=== PATIENT | female | born 1980 | race Caucasian/White ===

== ENCOUNTER 2023-04-13 09:01 | Outpatient (OUT) | payer OTHER, SELFPAY ==
--- NOTE | 2023-04-13 09:07 | VEIN_ITS ---
Patient: MATT CHENG Exam Date: 04/13/2023 : 1980 Gender:F Ordering : MRS. DIANA SALGUERO . Admission #: [id number] Family : Order #: [id number] CLICK HERE TO VIEW EXAM RADIOLOGY REPORT PROCEDURE: VC EXT VENOUS REFLUX HAILY LMTD COMPARISON: None. INDICATIONS: Pain due to varicose veins of bilateral leg I83.813 TECHNIQUE: Duplex imaging of the lower extremity to assess the deep and superficial venous system for the presence of deep or superficial venous incompetence and to document the location and severity of disease. The study includes evaluation of the great saphenous vein (GSV), anterior accessory saphenous vein (AASV) and small saphenous vein (SSV). Patient scanned in reverse Trendelenburg and standing. FINDINGS: RIGHT LOWER EXTREMITY: Saphenofemoral Junction Reflux: Yes 8.4mm 1.3 sec GSV: Diam (mm) Reflux/ Time (sec) Proximal Thigh 6.3 Yes 1.8 Mid Thigh 4.1 Yes Distal Thigh 3.4 No Prox Calf 2.8 Yes 0.8 Mid Calf 2.4 No Saphenopopliteal Junction Reflux: 6.0mm Yes 1.2 SSV: Proximal Calf 5.2 Yes 1.0 Mid Calf 4.0 Yes 1.9 AASV: Proximal Thigh 4.2 Mid Thigh 2.0 Distal Thigh Thrombi: No acute or chronic thrombus Compressibility: Normal Flow: Normal Preforator: Dist/med calf 1.6mm with 0s reflux. Tech Note: Incompetent SFJ, GSV, SPJ, and SSV. Patent varicose vein mid/med thigh 3.4mm with 1.6s reflux. Patent varicose vein dist/med thigh 3.4mm with 0s reflux. Patent varicose vein prox/med calf 1.8mm with 0.9s reflux. 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 Tech Note: Incompetent SFJ, GSV, and AASV. Patent varicose vein prox/med calf 4.9mm with 4.1s reflux. Patent varicose vein prox/med thigh 3.9mm with 1.9s reflux. Patent varicose vein mid/lat thigh 6.2mm with 1.9s reflux. Patent varicose vein ant/dist thigh 5.3mm with 1.7s reflux. CONCLUSION: 1. Abnormally dilated and incompetent left great saphenous and anterior accessory saphenous veins. Numerous incompetent and dilated branch saphenous varicosities. Consultation for endovenous ablation is recommended. 2. Segments of abnormal reflux within right great saphenous and small saphenous veins which fall just below criteria for abnormal dilation. Follow-up is recommended. Dictated by: Lyle Paz M.D. on 04/13/2023 at 10:13 Approved by: Lyle Paz M.D. on 04/13/2023 at 10:39
--- NOTE | 2023-04-13 09:07 | VEIN_ITS ---
Patient: MATT CHENG Exam Date: 04/13/2023 : 1980 Gender:F Ordering : MRS. DIANA SALGUERO . Admission #: [id number] Family : Order #: [id number] CLICK HERE TO VIEW EXAM RADIOLOGY REPORT PROCEDURE: [facility] COMPREHENSIVE VEIN CENTER - OFFICE VISIT INITIAL COMPARISON: None. PROGRESS NOTES: [age] year old female who presents with a 16 year history of bulging dilated veins, discolored veins, leg pain, swelling, muscle cramping, edema. The patient's symptoms are symmetric bilaterally. There has been a progression of symptoms over time. This increases with prolonged leg dependency. The patient describes an improvement with rest and elevation. The patient denies any signs and symptoms to suggest arterial ischemia. The patient describes a family history of varicose veins on maternal and paternal side. The patient has drinking and smoking history of : Occasional alcohol consumption; no tobacco use. Patient has a past medical history significant for 6th hypertension. The patient denies a history of deep venous thrombus or pulmonary embolus. See separate history and physical for medication list. No prior treatment for varicose or spider veins. Past treatment has included use of compression stockings. After review of nurse notes, history and physical exam I discussed at length the pathophysiology of venous hypertension and possible treatments, therapies and strategies available. We discussed at length the importance of elevating the lower extremities above the level of the heart, increased physical activity and compression stocking use. Ultrasound venous reflux study performed today was discussed at length with the patient. The report demonstrates abnormally dilated and incompetent left great saphenous and anterior accessory saphenous veins. The right leg demonstrates multiple areas of reflux, but vein diameter falls just below criteria for treatment. Multiple dilated, incompetent branch saphenous varicosities bilaterally.. PHYSICAL EXAM: The right leg demonstrates several varicosities, multiple prominent reticular veins and spider veins, no ulceration, mild edema, no skin discoloration. The left leg demonstrates several large varicosities, multiple prominent reticular veins and spider veins, no ulceration, mild edema, no skin discoloration. Both thighs, legs and feet were symmetrically warm to the touch. Good posterior tibial and dorsalis pedis pulses were present bilaterally. IMPRESSION: 1. Bilateral lower extremity venous insufficiency; left greater than right. 2. Bilateral lower extremity varicose veins 3. Mild lower extremity subcutaneous edema 4. No flow significant arterial disease 5. CEAP: C3, EC, , MA PLAN: 1. Continued use of compression stockings 2. Elevated legs and increased physical activity symptomatic relief 3. Endovenous laser ablation of left great saphenous and anterior accessory saphenous veins. 4. Microfoam chemical ablation of left leg incompetent branch saphenous varicosities. 5. Sclerotherapy of bilateral lower extremities for prominent reticular veins and spider veins. 6. Follow-up of right lower extremity saphenous veins, since there are multiple areas of prominent reflux, but diameter falls just below treatment criteria. Nurse notes, history and physical were reviewed and confirmed, see attached forms. The nurse was present throughout the physical exam and consultation Dictated by: Lyle Paz M.D. on 04/13/2023 at 10:40 Approved by: Lyle Paz M.D. on 04/13/2023 at 10:51
== END 2023-04-13 09:02 ==
LOC: VC 09:03
PROVIDERS: PCP Nurse Practitioner; Visit Provider Nurse Practitioner
DX: I83.813 Varicose veins of bilateral lower extremities with pain (principal)
CPT/HCPCS: 93970; G0463

== ENCOUNTER 2023-05-06 12:35 | Outpatient (OUT) | payer OTHER, SELFPAY ==
--- NOTE | 2023-05-06 12:37 | VEIN_ITS ---
[address] [address] Patient Name: MATT CHENG MRN: [id number] date: 1980 Sex: F Assigned Patient Location: Current Patient Location: Accession/Order Number: [id number] Exam Date: 05/06/2023 12:40 Report Date: 05/06/2023 14:08 At the request of: FARHAT KHAN Procedure: VC Endovenous Ablation 1VeinLT EXAMINATION: VC Endovenous Ablation 1VeinLT HISTORY: Pain due to varicose veins of bilateral legs I83.813 COMPARISON: No relevant comparison available. TECHNIQUE: The risks and benefits of the procedure had been previously discussed, and were rediscussed at length. Informed written consent was obtained. Puja Clements and Griffin Myers assisted. Time out procedure was performed. The left lower extremity was prepared and draped in the usual sterile fashion to allow knee flexion in the sterile field. Duplex ultrasound probe was draped in a sterile cover, sterile transmission gel was used. Venous mapping was performed with the areas of dilation and large tributaries marked. The total length was 34 cm from the entry upper calf to 3 cm below the saphenofemoral junction. The diameter of the greater saphenous vein ranged from 4-9 mm. A 30 gauge needle and 1% buffered lidocaine was used to anesthetize the entry site. A 4 mm incision was made with a scalpel and the saphenous vein was entered percutaneously under direct ultrasound guidance with a micropuncture set, a single stick was successful in gaining access. A micro-guide wire was inserted and the needle removed. A micro-set including a dilator was inserted over the microwire and the needle and dilator were removed. A 0.018 guide wire was inserted through the micro-set and threaded through the saphenous vein to the saphenofemoral junction. The dilator was removed and an introducer sheath was inserted over the wire until the end of the sheath entered the saphenofemoral junction. The dilator and wire were removed and the 600 micron fiber was introduced and placed and positioned so that it extended beyond the sheath and was 3 cm peripheral to the saphenofemoral femoral junction. Final position of the fiber was determined by ultrasound guidance and duplex imaging. Tumescent anesthetic was delivered by ultrasound guidance. 200 cc of fluid was delivered along the entire course of the saphenous vein. The solution consisted of 1000 cc of normal saline with 40 mL of 1% lidocaine and 20 mL of sodium bicarbonate. A final positioning check was made. The energy source was turned on by means of the foot pedal and the fiber and sheath were withdrawn. The total number of Joules delivered was 1617. The laser was active for 202seconds under continuous pulse, average laser use of 8 J. Laser start time 13:47 05/06/23 . Laser stop time 13:51 05/06/23 . A duplex ultrasound revealed compressibility and flow at the saphenofemoral junction immediately after the procedure. Hemostasis at the access site was achieved. The skin incision of the saphenous vein was closed with a 4 x 4. A compression stocking was applied. Postop instructions were given. A follow up appointment was recommended and scheduled. The patient tolerated the procedure well and was discharged in good condition . IMPRESSION: Technically successful endovenous laser ablation of the left great saphenous vein Electronically authenticated by: FARHAT KHAN Date: 05/06/2023 14:08
[2023-05-12] MEDS: 0.9 % SODIUM CHLORIDE 500 ML, LIDOCAINE HCL 20 ML, SODIUM BICARBONATE 10 MEQ INJ (11:37)
[2023-05-12] MEDS: LIDOCAINE HCL 10 ML, SODIUM BICARBONATE 1 MEQ INJ (11:37)
== END 2023-05-06 12:36 | disposition home or self-care (01) ==
LOC: VC 12:36
PROVIDERS: PCP Radiology Diagnostic Radiology; Visit Provider Radiology Diagnostic Radiology
DX: I83.813 Varicose veins of bilateral lower extremities with pain (principal)
CPT/HCPCS: 36478

== ENCOUNTER 2023-05-13 13:23 | Outpatient (OUT) | payer OTHER, SELFPAY ==
--- NOTE | 2023-05-13 13:25 | VEIN_ITS ---
Patient: MATT CHENG Exam Date: 05/13/2023 : 1980 Gender:F Ordering : DR FARHAT KHAN M.D. Admission #: [id number] Family : Order #: [id number] CLICK HERE TO VIEW EXAM RADIOLOGY REPORT PROCEDURE: VC EXT VENOUS LT LIMITED COMPARISON: None. INDICATIONS: I80.02 Phlebitis of superficial veins of lt lower extremity TECHNIQUE: Lower extremity liao scale and Duplex Doppler evaluation of the deep venous system from the inguinal ligament through the calf veins. FINDINGS: REGION: Left lower extremity. THROMBI: Negative for DVT. Heat induced thrombus visualized 1.7 cm from the SFJ. The heat induced thrombus extends from groin to proximal calf. COMPRESSIBILITY: Non-compressible segments. FLOW: Areas of no flow. OTHER: CONCLUSION: 1. Successful post ablation occlusion of left great saphenous vein. Dictated by: Lyle Paz M.D. on 05/13/2023 at 14:05 Approved by: Lyle Paz M.D. on 05/13/2023 at 14:06
--- NOTE | 2023-05-13 13:25 | VEIN_ITS ---
Patient: MATT CHENG Exam Date: 05/13/2023 : 1980 Gender:F Ordering : DR FARHAT KHAN M.D. Admission #: [id number] Family : Order #: [id number] CLICK HERE TO VIEW EXAM RADIOLOGY REPORT PROCEDURE: [facility] EST LMTD VEIN CENTER - OFFICE VISIT FOLLOW UP COMPARISON: None. PROGRESS NOTES: The patient reports mild bruising along with slight improvement in left leg symptoms. There has been interval reduction in varicosities. The patient has followed our recommendations to walk 20-30 minutes once or twice per day since the procedure. Physical exam demonstrates decrease in varicosities of the left leg. Persistent mild bruising along with persistent varicosities are identified along the left. Review of the ultrasound performed the same day demonstrates occlusive thrombus extending throughout the treated vein, see separate report, consistent with a successful ablation. No thrombus extending into or beyond the saphenofemoral junction. The patient expressed a desire to proceed with treatment of left anterior accessory saphenous vein and remaining incompetent branch saphenous varicosities. The patient was informed that treatment was a process and would require several procedures/sessions. IMPRESSION: 1. Successful ablation of the left great saphenous vein 2. Persistent incompetent varicose veins and lower extremity symptoms PLAN: Endovenous laser ablation of left anterior accessory saphenous vein. Nurse notes, history and physical were reviewed and confirmed, see attached forms. The nurse was present throughout the physical exam and consultation Dictated by: Lyle Paz M.D. on 05/13/2023 at 14:06 Approved by: Lyle Paz M.D. on 05/13/2023 at 14:08
== END 2023-05-13 13:24 | disposition home or self-care (01) ==
LOC: VC 13:23
PROVIDERS: PCP Radiology Diagnostic Radiology; Visit Provider Radiology Diagnostic Radiology
DX: I80.02 Phlebitis and thrombophlebitis of superficial vessels of left lower extremity (principal); I83.813 Varicose veins of bilateral lower extremities with pain
CPT/HCPCS: 93971; G0463

== ENCOUNTER 2023-05-26 09:03 | Outpatient (OUT) | payer OTHER, SELFPAY ==
--- NOTE | 2023-05-26 | VEIN_ITS ---
[address] [address] Patient Name: MATT CHENG MRN: [id number] date: 1980 Sex: F Assigned Patient Location: Current Patient Location: Accession/Order Number: [id number] Exam Date: 05/26/2023 09:15 Report Date: 05/26/2023 10:20 At the request of: FARHAT KHAN Procedure: VC Endovenous Ablation 1VeinLT EXAMINATION: VC Endovenous Ablation 1VeinLT HISTORY: Pain due to varicose veins of bilateral legs I83.813 COMPARISON: No relevant comparison available. TECHNIQUE: The risks and benefits of the procedure had been previously discussed, and were rediscussed at length. Informed written consent was obtained. Puja Clements and Griffin Myers assisted. Time out procedure was performed. The left lower extremity was prepared and draped in the usual sterile fashion to allow knee flexion in the sterile field. Duplex ultrasound probe was draped in a sterile cover, sterile transmission gel was used. Venous mapping was performed with the areas of dilation and large tributaries marked. The total length was 7 cm from the entry upper thigh to 3 cm below the saphenofemoral junction. The diameter of the greater saphenous vein ranged from 5-7 mm. A 30 gauge needle and 1% buffered lidocaine was used to anesthetize the entry site. A 4 mm incision was made with a scalpel and the saphenous vein was entered percutaneously under direct ultrasound guidance with a micropuncture set, a single stick was successful in gaining access. A micro-guide wire was inserted and the needle removed. A micro-set including a dilator was inserted over the microwire and the needle and dilator were removed. A 0.018 guide wire was inserted through the micro-set and threaded through the saphenous vein to the saphenofemoral junction. The dilator was removed and an introducer sheath was inserted over the wire until the end of the sheath entered the saphenofemoral junction. The dilator and wire were removed and the 600 micron fiber was introduced and placed and positioned so that it extended beyond the sheath and was 3 cm peripheral to the saphenofemoral femoral junction. Final position of the fiber was determined by ultrasound guidance and duplex imaging. Tumescent anesthetic was delivered by ultrasound guidance. 75 cc of fluid was delivered along the entire course of the saphenous vein. The solution consisted of 1000 cc of normal saline with 40 mL of 1% lidocaine and 20 mL of sodium bicarbonate. A final positioning check was made. The energy source was turned on by means of the foot pedal and the fiber and sheath were withdrawn. The total number of Joules delivered was 383. The laser was active for 48 seconds under continuous pulse, average laser use of 8 J. Laser start time 9:58 AM 05/26/2023 . Laser stop time 10AM 05/26/2023. A duplex ultrasound revealed compressibility and flow at the saphenofemoral junction immediately after the procedure. Hemostasis at the access site was achieved. The skin incision of the saphenous vein was closed with a 4 x 4. A compression stocking was applied. Postop instructions were given. A follow up appointment was recommended and scheduled. The patient tolerated the procedure well and was discharged in good condition . VEIN/VC Endovenous Ablation 1VeinLT IMPRESSION: Technically successful endovenous laser ablation left anterior accessory saphenous vein Electronically authenticated by: FARHAT KHAN Date: 05/26/2023 10:20
[2023-05-26] MEDS: 0.9 % SODIUM CHLORIDE 500 ML, LIDOCAINE HCL 20 ML, SODIUM BICARBONATE 10 MEQ INJ (09:51)
[2023-05-26] MEDS: LIDOCAINE HCL 10 ML, SODIUM BICARBONATE 1 MEQ INJ (09:52)
== END 2023-05-26 09:04 | disposition home or self-care (01) ==
LOC: VC 09:03
PROVIDERS: PCP Radiology Diagnostic Radiology; Visit Provider Radiology Diagnostic Radiology
DX: I83.813 Varicose veins of bilateral lower extremities with pain (principal)
CPT/HCPCS: 36478

== ENCOUNTER 2023-06-01 11:25 | Outpatient (OUT) | payer OTHER, SELFPAY ==
--- NOTE | 2023-06-01 11:27 | VEIN_ITS ---
Patient: MATT CHENG Exam Date: 06/01/2023 : 1980 Gender:F Ordering : DR FARHAT KHAN M.D. Admission #: [id number] Family : Order #: [id number] CLICK HERE TO VIEW EXAM RADIOLOGY REPORT PROCEDURE: VC EXT VENOUS LT LIMITED COMPARISON: VC EXT VENOUS LT LIMITED, 05/13/2023. INDICATIONS: I80.02 Phlebitis of superficial veins of lt lower extremity TECHNIQUE: Lower extremity liao scale and Duplex Doppler evaluation of the deep venous system from the inguinal ligament through the calf veins. FINDINGS: REGION: Left lower extremity. THROMBI: Negative for DVT. Heat induced thrombus visualized 1.3cm from the SFJ. The heat induced thrombus extends from groin to prox thigh. COMPRESSIBILITY: Non-compressible segments. FLOW: Areas of no flow. OTHER: CONCLUSION: 1. Successful post ablation occlusion of left anterior accessory saphenous vein. Dictated by: Lyle Paz M.D. on 06/01/2023 at 11:43 Approved by: Lyle Paz M.D. on 06/01/2023 at 11:53
--- NOTE | 2023-06-01 11:27 | VEIN_ITS ---
Patient: MATT CHENG Exam Date: 06/01/2023 : 1980 Gender:F Ordering : DR FARHAT KHAN M.D. Admission #: [id number] Family : Order #: [id number] CLICK HERE TO VIEW EXAM RADIOLOGY REPORT PROCEDURE: [facility] EST LMTD VEIN CENTER - OFFICE VISIT FOLLOW UP [facility] PROGRESS NOTES: The patient reports improvement in left leg symptoms. There has been interval reduction in varicosities. The patient has followed our recommendations to walk 20-30 minutes once or twice per day since the procedure. Physical exam demonstrates decrease in varicosities of the leg. Persistent varicosities are identified along the left leg. Review of the ultrasound performed the same day demonstrates occlusive thrombus extending throughout the treated vein(s), see separate report, consistent with a successful ablation. No thrombus extending into or beyond the saphenofemoral junction. The patient expressed a desire to proceed with treatment of incompetent branch saphenous varicosities. The patient was informed that treatment was a process and would require 1-2 procedures/sessions of microfoam. VEIN/[facility] EST LMTD IMPRESSION: 1. Successful ablation of the left anterior accessory saphenous vein(s). 2. Persistent incompetent branch saphenous veins and left leg symptoms. PLAN: 1. Microfoam chemical ablation of left leg incompetent branch saphenous varicosities. 2. Sclerotherapy. Nurse notes, history and physical were reviewed and confirmed, see attached forms. The nurse was present throughout the physical exam and consultation Dictated by: Lyle Paz M.D. on 06/01/2023 at 11:53 Approved by: Lyle Paz M.D. on 06/01/2023 at 11:57
== END 2023-06-01 11:26 | disposition home or self-care (01) ==
LOC: VC 11:25
PROVIDERS: PCP Radiology Diagnostic Radiology; Visit Provider Radiology Diagnostic Radiology
DX: I80.02 Phlebitis and thrombophlebitis of superficial vessels of left lower extremity (principal); I83.813 Varicose veins of bilateral lower extremities with pain
CPT/HCPCS: 93971; G0463

== ENCOUNTER 2023-06-14 14:31 | Outpatient (OUT) | payer OTHER, SELFPAY ==
--- NOTE | 2023-06-14 | VEIN_ITS ---
The [address] [address] Patient Name: MATT CHENG MRN: [id number] date: 1980 Sex: F Assigned Patient Location: Current Patient Location: Accession/Order Number: [id number] Exam Date: 06/14/2023 14:30 Report Date: 06/14/2023 16:06 At the request of: FARHAT KHAN Procedure: VC INJ Foam Sclerosant WUS PHOTOGRAPHIC SUPERVISOR PROCEDURE: VC INJ Foam Sclerosant WUS PHOTOGRAPHIC SUPERVISOR HISTORY: Pain due to varicose veins of bilateral legs I83.813 Pre-operative Diagnosis: CEAP class C3 venous insufficiency with pain, tenderness, edema and incompetent branch saphenous vein(s), chronic venous insufficiency left leg secondary to venous incompetence Post-operative Diagnosis: CEAP class C3 venous insufficiency with pain, tenderness, edema and incompetent branch saphenous vein(s), chronic venous insufficiency left leg secondary to venous incompetence Procedure Performed: 1. Ultrasound-guided microfoam chemical ablation with Varithenaregistered 2. Intraoperative ultrasound guidance Physician: Lyle Paz M.D. Anesthesia: None Indications for Procedure: 43 year old female. Symptoms including lower extremity pain, swelling, itching, dilated veins for many years despite conservative medical therapy including medical compression stockings, exercise and analgesics. Prior procedures include endovenous laser ablation. Multiple incompetent varicosities of the left leg. Duplex scan showed reflux and enlarged diameters up to 4 mm. The patient underwent informed consent including management options where the complications of infection, bleeding, pain, and skin injury were discussed. Particular attention was spent discussing thrombus extension and deep vein thrombosis as well as the possibility of pulmonary embolus and treatment with oral or injectable blood thinners. Procedure: The patient walked to the procedure room. All applicable staff donned appropriate apparel. A procedure timeout was performed to confirm correct patient, correct extremity, correct procedure, and correct room set-up including presence of all applicable supplies, devices, and drugs. A duplex ultrasound, performed by myself confirmed the location and incompetence of branch saphenous varicosities and their course was marked on the skin together with the dilated tributaries. The extent of treatment of the vein and the associated varicosities was determined through ultrasound mapping. The skin was prepped and then punctured with a butterfly needle and advanced under ultrasound guidance. The Varithenaregistered canister was activated and the canister was primed and purged as required in the instructions for use. Varithenaregistered was drawn into a sterile syringe. Varithenaregistered was slowly administered at 0.5-1.0 cc/second with close observation by ultrasound of its course in the vessels. Total volume utilized was: 15 mL (for metal within a 4 mm varicosity of the mid medial lower left leg; 5 mL within a 4 mm varicosity of the proximal lateral lower left leg; 6 mL within a 4 mm varicosity of the mid lateral upper left leg). Following administration of Varithenaregistered the leg was elevated and the patient was asked to repeatedly dorsiflex the ankle to limit flow of Varithenaregistered into perforating veins. Once appropriate spasm had been confirmed in the treated veins, the vascular catheter was removed from the leg and light pressure was applied over the puncture site for hemostasis. The common femoral and deep superficial veins were then evaluated for flow and compressibility prior to dressing placement. The lower extremity was kept elevated at 45 degrees above the horizontal and cording material was applied over the saphenous segments and tributaries to allow for eccentric compression over the target vessels including the targeted saphenous vein(s). A multilayer dressing was applied consisting of foam pads, coban and thigh-high 20-30 mm Hg compression elastic support hose were placed on the patient. The leg was lowered only after compression had been applied and the patient was immediately ambulatory. The patient ambulated 10 minutes under supervision and was without apparent concerns at time of release. Post-care instructions include advising patient to keep post-treatment bandages in place and dry for 48 hours, avoid extended periods of inactivity, avoid heavy exercise for one week, wear compression stockings on the treated leg continuously for two weeks, to walk daily for 10 minutes over the next month. The patient was instructed to take an anti-inflammatory medicine as needed and to follow up for color duplex scan of the Saphenous veins, the treated branch saphenous varicosities, the adjacent deep veins, and additional treatment within 7 days. PERSONNEL: Griffin Myers RN Electronically authenticated by: LYLE PAZ Date: 06/14/2023 16:06
== END 2023-06-14 14:32 | disposition home or self-care (01) ==
LOC: VC 14:31
PROVIDERS: PCP Radiology Diagnostic Radiology; Visit Provider Radiology Diagnostic Radiology
DX: I83.813 Varicose veins of bilateral lower extremities with pain (principal)
CPT/HCPCS: 36466

== ENCOUNTER 2023-06-21 11:19 | Outpatient (OUT) | payer OTHER, SELFPAY ==
--- NOTE | 2023-06-21 11:20 | VEIN_ITS ---
Patient: MATT CHENG Exam Date: 06/21/2023 : 1980 Gender:F Ordering : DR FARHAT KHAN M.D. Admission #: [id number] Family : Order #: [id number] CLICK HERE TO VIEW EXAM RADIOLOGY REPORT PROCEDURE: VC EXT VENOUS LT LIMITED COMPARISON: VC EXT VENOUS LT LIMITED, 06/01/2023. INDICATIONS: I80.02 Phlebitis of superficial veins of lt lower extremity TECHNIQUE: Lower extremity liao scale and Duplex Doppler evaluation of the deep venous system from the inguinal ligament through the calf veins. FINDINGS: REGION: Left lower extremity. THROMBI: Negative for DVT. Chemically induced thrombus in multiple varicose veins in left leg. 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 COMPRESSIBILITY: Non-compressible segments. FLOW: Areas of no flow. OTHER: Patent varicose vein lateral anterior knee measures 2.7 mm. AASV is patent mid anterior thigh. CONCLUSION: 1. Successful post ablation occlusion of treated branch saphenous varicosities of the left leg. Dictated by: Lyle Paz M.D. on 06/21/2023 at 12:00 Approved by: Lyle Paz M.D. on 06/21/2023 at 12:09
--- NOTE | 2023-06-21 11:20 | VEIN_ITS ---
Patient: MATT CHENG Exam Date: 06/21/2023 : 1980 Gender:F Ordering : DR FARHAT KHAN M.D. Admission #: [id number] Family : Order #: [id number] CLICK HERE TO VIEW EXAM RADIOLOGY REPORT PROCEDURE: [facility] EST LMTD VEIN CENTER - OFFICE VISIT FOLLOW UP COMPARISON: [facility], 06/01/2023. PROGRESS NOTES: The patient reports improvement in leg symptoms. There has been interval reduction in varicosities. The patient has followed our recommendations to walk 20-30 minutes once or twice per day since the procedure. Physical exam demonstrates decrease in varicosities of the leg. Persistent varicosity is identified anterior to the knee. Review of the ultrasound performed the same day demonstrates occlusive thrombus extending throughout the treated vein(s), see separate report, consistent with a successful ablation. No thrombus extending into or beyond the saphenofemoral junction. The patient expressed a desire to proceed with treatment of incompetent varicosity anterior to the knee and residual distal aspect of anterior accessory saphenous vein. The patient was informed that treatment was a process and would require 1 procedures/sessions. [facility]: 1. Successful ablation of the treated branch saphenous varicosities within the left leg. 2. Persistent incompetent varicose veins and mild lower extremity symptoms. PLAN: 1. Microfoam chemical ablation of incompetent varicosity anterior to the knee and residual distal aspect of anterior accessory saphenous vein. 2. Sclerotherapy. Nurse notes, history and physical were reviewed and confirmed, see attached forms. The nurse was present throughout the physical exam and consultation Dictated by: Lyle Paz M.D. on 06/21/2023 at 12:09 Approved by: Lyle Paz M.D. on 06/21/2023 at 13:19
== END 2023-06-21 11:20 | disposition home or self-care (01) ==
LOC: VC 11:19
PROVIDERS: PCP Nurse Practitioner; Visit Provider Radiology Diagnostic Radiology
DX: I80.02 Phlebitis and thrombophlebitis of superficial vessels of left lower extremity (principal)
CPT/HCPCS: 93971; G0463

== ENCOUNTER 2023-06-28 14:25 | Outpatient (OUT) | payer OTHER, SELFPAY ==
--- NOTE | 2023-06-28 | VEIN_ITS ---
The [address] [address] Patient Name: MATT CHENG MRN: [id number] date: 1980 Sex: F Assigned Patient Location: Current Patient Location: Accession/Order Number: [id number] Exam Date: 06/28/2023 14:30 Report Date: 06/28/2023 16:25 At the request of: FARHAT KHAN Procedure: VC INJ Foam Sclerosant WUS SPRING REPAIRER HELPER HAND PROCEDURE: VC INJ Foam Sclerosant WUS SPRING REPAIRER HELPER HAND HISTORY: Pain due to varicose veins of bilateral legs I83.813 Pre-operative Diagnosis: CEAP class C3 venous insufficiency with pain, tenderness, edema and incompetent branch saphenous vein(s), chronic venous insufficiency left leg secondary to venous incompetence Post-operative Diagnosis: CEAP class C3 venous insufficiency with pain, tenderness, edema and incompetent branch saphenous vein(s), chronic venous insufficiency left leg secondary to venous incompetence Procedure Performed: 1. Ultrasound-guided microfoam chemical ablation with Varithenaregistered 2. Intraoperative ultrasound guidance Physician: Lyle Paz M.D. Anesthesia: None Indications for Procedure: 43 year old female. Symptoms including lower extremity pain, throbbing, itching, heaviness, dilated bulging veins for many years despite conservative medical therapy including medical compression stockings, exercise and analgesics. Prior procedures include endovenous laser ablation and Microfoam chemical ablation. Multiple incompetent varicosities of the left leg. Duplex scan showed reflux and enlarged diameters up to 4 mm. The patient underwent informed consent including management options where the complications of infection, bleeding, pain, and skin injury were discussed. Particular attention was spent discussing thrombus extension and deep vein thrombosis as well as the possibility of pulmonary embolus and treatment with oral or injectable blood thinners. Procedure: The patient walked to the procedure room. All applicable staff donned appropriate apparel. A procedure timeout was performed to confirm correct patient, correct extremity, correct procedure, and correct room set-up including presence of all applicable supplies, devices, and drugs. A duplex ultrasound, performed by myself confirmed the location and incompetence of branch saphenous varicosities and their course was marked on the skin together with the dilated tributaries. The extent of treatment of the vein and the associated varicosities was determined through ultrasound mapping. The skin was prepped and then punctured with a butterfly needle and advanced under ultrasound guidance. The Varithenaregistered canister was activated and the canister was primed and purged as required in the instructions for use. Varithenaregistered was drawn into a sterile syringe. Varithenaregistered was slowly administered at 0.5-1.0 cc/second with close observation by ultrasound of its course in the vessels. Total volume utilized was: 8 mL (4 mL within an incompetent 4 mm branch saphenous varicosity of the medial lower leg; 4 mL into a 4 mm varicosity of the anterior mid thigh). Following administration of Varithenaregistered the leg was elevated and the patient was asked to repeatedly dorsiflex the ankle to limit flow of Varithenaregistered into perforating veins. Once appropriate spasm had been confirmed in the treated veins, the vascular catheter was removed from the leg and light pressure was applied over the puncture site for hemostasis. The common femoral and deep superficial veins were then evaluated for flow and compressibility prior to dressing placement. The lower extremity was kept elevated at 45 degrees above the horizontal and cording material was applied over the saphenous segments and tributaries to allow for eccentric compression over the target vessels including the targeted saphenous vein(s). A multilayer dressing was applied consisting of foam pads, coban and thigh-high 20-30 mm Hg compression elastic support hose were placed on the patient. The leg was lowered only after compression had been applied and the patient was immediately ambulatory. The patient ambulated 10 minutes under supervision and was without apparent concerns at time of release. Post-care instructions include advising patient to keep post-treatment bandages in place and dry for 48 hours, avoid extended periods of inactivity, avoid heavy exercise for one week, wear compression stockings on the treated leg continuously for two weeks, to walk daily for 10 minutes over the next month. The patient was instructed to take an anti-inflammatory medicine as needed and to follow up for color duplex scan of the Saphenous veins, the treated branch saphenous varicosities, the adjacent deep veins, and additional treatment within 7 days. PERSONNEL: Griffin Myers RN Electronically authenticated by: LYLE PAZ Date: 06/28/2023 16:25
== END 2023-06-28 14:26 | disposition home or self-care (01) ==
LOC: VC 14:25
PROVIDERS: PCP Nurse Practitioner; Visit Provider Radiology Diagnostic Radiology
DX: I83.813 Varicose veins of bilateral lower extremities with pain (principal)
CPT/HCPCS: 36466

== ENCOUNTER 2023-07-05 14:44 | Outpatient (OUT) | payer OTHER, SELFPAY ==
--- NOTE | 2023-07-05 | VEIN_ITS ---
Patient: MATT CHENG Exam Date: 07/05/2023 : 1980 Gender:F Ordering : DR PAUL WEBER M.D. Admission #: [id number] Family : Order #: [id number] CLICK HERE TO VIEW EXAM RADIOLOGY REPORT PROCEDURE: FACILITY EST LMTD VEIN CENTER - OFFICE VISIT FOLLOW UP COMPARISON: [facility] EST LMTD, 06/21/2023. FACILITY EST LMTD, 06/01/2023. PROGRESS NOTES: The patient reports significant improvement in her left leg presenting symptoms, bringing intention to significant discomfort now in the right leg. Multiple thrombosed varicose veins identified throughout the left leg with moderate hemosiderin staining, this was discussed with the patient to avoid sun exposure or to wear a mechanical sunblock. The patient has not required oral analgesics. The patient has worn her compression stockings. The patient has followed our recommendations to walk 20-30 minutes once or twice per day since the procedure. Physical exam demonstrates scattered right leg varicose veins. Moderate bilateral reticular and spider veins. Review of the ultrasound performed the same day demonstrates occlusive thrombus extending throughout the treated varicose veins with no deep vein thrombus. Incompetent right small saphenous vein is observed. The patient expressed a desire to proceed with treatment of incompetent right small saphenous vein with intravenous laser ablation. VEIN/ Facility EST LMTD IMPRESSION: 1. Successful ablation of the treated incompetent left leg varicose veins 2. Persistent incompetent right small saphenous vein. PLAN: Intravenous laser ablation right small saphenous vein Nurse notes, history and physical were reviewed and confirmed, see attached forms. The nurse was present throughout the physical exam and consultation Dictated by: Paul Weber MD on 07/05/2023 at 15:34 Approved by: Paul Weber MD on 07/05/2023 at 15:36
--- NOTE | 2023-07-05 | VEIN_ITS ---
Patient: MATT CHENG Exam Date: 07/05/2023 : 1980 Gender:F Ordering : DR PAUL WEBER M.D. Admission #: [id number] Family : Order #: [id number] CLICK HERE TO VIEW EXAM RADIOLOGY REPORT PROCEDURE: VC EXT VENOUS LT LIMITED COMPARISON: VC EXT VENOUS LT LIMITED, 06/21/2023. VC EXT VENOUS LT LIMITED, 06/01/2023. INDICATIONS: Phlebitis of superficial veins of lt lower extremity I80.02 TECHNIQUE: Lower extremity liao scale and Duplex Doppler evaluation of the deep venous system from the inguinal ligament through the calf veins. FINDINGS: REGION: Left lower extremity. THROMBI: Negative for DVT. Chemically induced thrombus in multiple varicose veins in left leg. COMPRESSIBILITY: Non-compressible segments corresponding to thrombus. FLOW: Absent flow corresponding to thrombus OTHER: Incompetent right SSV. No significant varicosities remain in left leg. CONCLUSION: Post ablation occlusion of treated left leg varicose veins. Dictated by: Paul Weber MD on 07/05/2023 at 15:14 Approved by: Paul Weber MD on 07/05/2023 at 15:33
== END 2023-07-05 14:45 | disposition home or self-care (01) ==
LOC: VC 14:44
PROVIDERS: PCP Radiology Diagnostic Radiology; Visit Provider Radiology Diagnostic Radiology
DX: I80.02 Phlebitis and thrombophlebitis of superficial vessels of left lower extremity (principal)
CPT/HCPCS: 93971; G0463

== ENCOUNTER 2023-07-15 14:50 | Outpatient (OUT) | payer OTHER, SELFPAY | END 2023-07-15 14:51 | disposition home or self-care (01) | LOC: VC 14:51 | PROVIDERS: PCP Radiology Diagnostic Radiology; Visit Provider Radiology Diagnostic Radiology | DX: I83.813 Varicose veins of bilateral lower extremities with pain (principal) | CPT/HCPCS: 36471 ==

== ENCOUNTER 2023-08-05 14:57 | Outpatient (OUT) | payer OTHER, SELFPAY ==
--- NOTE | 2023-08-05 | VEIN_ITS ---
[address] [address] Patient Name: MATT CHENG MRN: [id number] date: 1980 Sex: F Assigned Patient Location: Current Patient Location: Accession/Order Number: [id number] Exam Date: 08/05/2023 14:55 Report Date: 08/05/2023 16:06 At the request of: FARHAT KHAN Procedure: VC INJ Sclerosing SOLMULT Vein EXAMINATION: VC INJ Sclerosing SOLMULT Vein HISTORY: Pain due to varicose veins of bilateral legs I83.813 The risks and benefits of the procedure were explained at length to the patient and informed written consent was obtained. The procedure was performed under sterile technique. The patient's leg was wrapped with Coban and postprocedural verbal and written instructions provided. Griffin Myers RN was present and assisted. SCLEROSANT: 2mL 0.5% Polidocanol. VEIN(S) INJECTED: 26 veins in the right leg. VISUALIZATION: Ultrasound was not used to visualize the sclerosant. ANESTHESIA: Supercooled air. COMPLICATIONS: None. Electronically authenticated by: MATTHEW QUAN Date: 08/05/2023 16:06
== END 2023-08-05 14:58 | disposition home or self-care (01) ==
LOC: VC 14:57
PROVIDERS: PCP Radiology Diagnostic Radiology; Visit Provider Radiology Diagnostic Radiology
DX: I83.813 Varicose veins of bilateral lower extremities with pain (principal)
CPT/HCPCS: 36471

== ENCOUNTER 2023-08-20 08:00 | Outpatient (OUT) | payer OTHER, SELFPAY ==
--- NOTE | 2023-08-20 08:00 | VEIN_ITS ---
The [address] [address] Patient Name: MATT CHENG MRN: [id number] date: 1980 Sex: F Assigned Patient Location: Current Patient Location: Accession/Order Number: [id number] Exam Date: 08/20/2023 08:05 Report Date: 08/20/2023 08:55 At the request of: FARHAT KHAN Procedure: VC Endovenous Ablation 1VeinRT EXAMINATION: VC Endovenous Ablation 1VeinRT HISTORY: I83.813 Painful varicose veins of bilat lower extremities The risks and benefits of the procedure had been previously discussed, and were rediscussed at length. Informed written consent was obtained. Griffin Myers RN and Mary Clements RDMS, RVT assisted. Time out procedure was performed. The right lower extremity was prepared and draped in the usual sterile fashion to allow knee flexion in the sterile field. Duplex ultrasound probe was draped in a sterile cover, sterile transmission gel was used. Venous mapping was performed with the areas of dilation and large tributaries marked. The total length was 20 cm from the entry 3 cm above the ankle to 3 cm below the Saphenopopliteal junction. The diameter of the right small saphenous vein ranged from 5.2 mm. A 30 gauge needle and 1% buffered lidocaine was used to anesthetize the entry site. A 4 mm incision was made with a scalpel and the saphenous vein was entered percutaneously under direct ultrasound guidance with a micropuncture set, a single stick was successful in gaining access. A micro-guide wire was inserted and the needle removed. A micro-set including a dilator was inserted over the microwire and the needle and dilator were removed. A guide wire was inserted through the micro-set and guided through the saphenous vein to the saphenofemoral junction. The dilator was removed and an introducer sheath was inserted over the wire until the end of the sheath entered the saphenofemoral junction. The dilator and wire were removed and the 600 micron fiber was introduced and placed and positioned so that it extended beyond the sheath and was 3 cm distal to the saphenofemoral or saphenopopliteal junction. Final position of the fiber was determined by ultrasound guidance and duplex imaging. Tumescent anesthetic was delivered by ultrasound guidance. 75 cc of fluid was delivered along the entire course of the saphenous vein. The solution consisted of 1000 cc of normal saline with 40 mL of 1% lidocaine and 20 mL of sodium bicarbonate. A final positioning check was made. The energy source was turned on by means of the foot pedal and the fiber and sheath were withdrawn. The total number of Joules delivered was 936. The laser was active for 117 seconds under continuous pulse, average laser use of 8 J. Laser start time 8:44 AM, 08/20/2023. Laser stop time 8:46 AM, 08/20/2023. A duplex ultrasound revealed compressibility and flow at the saphenofemoral junction immediately after the procedure. Hemostasis at the access site was achieved. The skin incision of the saphenous vein was closed with a 4 x 4. A compression stocking was applied. Postop instructions were given. A follow up appointment was recommended and scheduled. The patient tolerated the procedure well. Electronically authenticated by: MATTHEW QUAN Date: 08/20/2023 08:55
[2023-08-20] MEDS: LIDOCAINE HCL 1% 100 MG/10 ML MDV INJ (08:08)
[2023-08-20] MEDS: 0.9 % SODIUM CHLORIDE 500 ML, LIDOCAINE HCL 20 ML, SODIUM BICARBONATE 10 MEQ INJ (08:09)
== END 2023-08-20 08:01 | disposition home or self-care (01) ==
LOC: VC 08:00
PROVIDERS: PCP Radiology Diagnostic Radiology; Visit Provider Radiology Diagnostic Radiology
DX: I83.813 Varicose veins of bilateral lower extremities with pain (principal)
CPT/HCPCS: 36478

== ENCOUNTER 2023-08-25 07:27 | Outpatient (OUT) | payer OTHER, SELFPAY ==
--- NOTE | 2023-08-25 07:29 | VEIN_ITS ---
Patient: MATT CHENG Exam Date: 08/25/2023 : 1980 Gender:F Ordering : DR PAUL WEBER M.D. Admission #: [id number] Family : Order #: [id number] CLICK HERE TO VIEW EXAM RADIOLOGY REPORT PROCEDURE: VC EXT VENOUS RT LMTD COMPARISON: None. INDICATIONS: Phlebitis of superficial veins of rt lower extremity I80.01 TECHNIQUE: Lower extremity liao scale and Duplex Doppler evaluation of the deep venous system from the inguinal ligament through the calf veins. FINDINGS: REGION: Right lower extremity. THROMBI: Negative for DVT. Heat induced thrombus visualized 4.1 cm from the saphenopoliteal junction and is seen throughout the SSV to distal lower leg. COMPRESSIBILITY: Noncompressibility corresponding to thrombus FLOW: Absent flow corresponding to the CONCLUSION: Post ablation occlusion of the right small saphenous vein with heat induced thrombus 4.1 cm from the saphenous popliteal junction Dictated by: Paul Weber MD on 08/25/2023 at 07:58 Approved by: Paul Weber MD on 08/25/2023 at 08:00
--- NOTE | 2023-08-25 07:29 | VEIN_ITS ---
Patient: MATT CHENG Exam Date: 08/25/2023 : 1980 Gender:F Ordering : DR PAUL WEBER M.D. Admission #: [id number] Family : Order #: [id number] CLICK HERE TO VIEW EXAM RADIOLOGY REPORT PROCEDURE: FACILITY EST LMTD VEIN CENTER - OFFICE VISIT FOLLOW UP COMPARISON: FACILITY EST LMTD, 07/05/2023. FACILITY EST LMTD, 06/21/2023. PROGRESS NOTES: The patient reports no significant problems following intravenous laser ablation of the right small saphenous vein. The patient did not require oral analgesics. The patient has worn her compression stockings. The patient reports significant improvement in her initial presenting symptoms in the left leg which continues to feel. The patient has followed our recommendations to walk 20-30 minutes once or twice per day since the procedure. Physical exam demonstrates multiple bilateral thrombosed varicose and reticular veins. A thrombosed right small saphenous vein can be partially palpated Review of the ultrasound performed the same day demonstrates occlusive thrombus extending throughout the treated right small saphenous vein with heat induced thrombus 4 cm from the saphenopopliteal junction. The patient expressed a desire to proceed with treatment of right leg incompetent varicose veins with micro foam chemical ablation. I did recommend the patient that although the right great saphenous vein does meet criteria for treatment, continued observation in 1 year is recommended. I do not recommend ablating the right great saphenous vein as the disease is primarily in the small proximal portion VEIN/ Facility EST LMTD IMPRESSION: 1. Successful ablation of the right small saphenous vein. 2. Persistent right leg incompetent varicose veins. PLAN: Micro foam chemical ablation right leg incompetent varicose veins Nurse notes, history and physical were reviewed and confirmed, see attached forms. The nurse was present throughout the physical exam and consultation Dictated by: Paul Weber MD on 08/25/2023 at 08:06 Approved by: Paul Weber MD on 08/25/2023 at 08:09
== END 2023-08-25 07:28 | disposition home or self-care (01) ==
LOC: VC 07:28
PROVIDERS: PCP Radiology Diagnostic Radiology; Visit Provider Radiology Diagnostic Radiology
DX: I80.01 Phlebitis and thrombophlebitis of superficial vessels of right lower extremity (principal)
CPT/HCPCS: 93971; G0463

== ENCOUNTER 2023-09-02 14:56 | Outpatient (OUT) | payer OTHER, SELFPAY ==
--- NOTE | 2023-09-02 14:57 | VEIN_ITS ---
The [address] [address] Patient Name: MATT CHENG MRN: [id number] date: 1980 Sex: F Assigned Patient Location: Current Patient Location: Accession/Order Number: [id number] Exam Date: 09/02/2023 14:57 Report Date: 09/02/2023 16:10 At the request of: FARHAT KHAN Procedure: VC INJ Foam Sclerosant WUS PATIENT ACCESS MANAGER PROCEDURE: VC INJ Foam Sclerosant WUS PATIENT ACCESS MANAGER HISTORY: I83.813 Painful varicose veins of bilat lower extremities Pre-operative Diagnosis: CEAP class C3 venous insufficiency with pain, tenderness, edema and incompetent branch saphenous vein(s), chronic venous insufficiency right leg secondary to venous incompetence Post-operative Diagnosis: CEAP class C3 venous insufficiency with pain, tenderness, edema and incompetent branch saphenous vein(s), chronic venous insufficiency right leg secondary to venous incompetence Procedure Performed: 1. Ultrasound-guided microfoam chemical ablation with Varithenaregistered 2. Intraoperative ultrasound guidance Physician: Lyle Paz M.D. Anesthesia: None Indications for Procedure: 43 year old female. Symptoms including [lower extremity swelling, pain, dilated bulging veins for many years despite conservative medical therapy including medical compression stockings, exercise and analgesics. Prior procedures include endovenous laser ablation and microfoam chemical ablation. Multiple incompetent varicosities of the right leg. Duplex scan showed reflux and enlarged diameters up to 4 mm. The patient underwent informed consent including management options where the complications of infection, bleeding, pain, and skin injury were discussed. Particular attention was spent discussing thrombus extension and deep vein thrombosis as well as the possibility of pulmonary embolus and treatment with oral or injectable blood thinners. Procedure: The patient walked to the procedure room. All applicable staff donned appropriate apparel. A procedure timeout was performed to confirm correct patient, correct extremity, correct procedure, and correct room set-up including presence of all applicable supplies, devices, and drugs. A duplex ultrasound, performed by myself confirmed the location and incompetence of branch saphenous varicosities and their course was marked on the skin together with the dilated tributaries. The extent of treatment of the vein and the associated varicosities was determined through ultrasound mapping. The skin was prepped and then punctured with a butterfly needle and advanced under ultrasound guidance. The Varithenaregistered canister was activated and the canister was primed and purged as required in the instructions for use. Varithenaregistered was drawn into a sterile syringe. Varithenaregistered was slowly administered at 0.5-1.0 cc/second with close observation by ultrasound of its course in the vessels. Total volume utilized was: 7 mL into a 4 mm varicosity of the mid medial posterior lower leg. Following administration of Varithenaregistered the leg was elevated and the patient was asked to repeatedly dorsiflex the ankle to limit flow of Varithenaregistered into perforating veins. Once appropriate spasm had been confirmed in the treated veins, the vascular catheter was removed from the leg and light pressure was applied over the puncture site for hemostasis. The common femoral and deep superficial veins were then evaluated for flow and compressibility prior to dressing placement. The lower extremity was kept elevated at 45 degrees above the horizontal and cording material was applied over the saphenous segments and tributaries to allow for eccentric compression over the target vessels including the targeted saphenous vein(s). A multilayer dressing was applied consisting of foam pads, coban and thigh-high 20-30 mm Hg compression elastic support hose were placed on the patient. The leg was lowered only after compression had been applied and the patient was immediately ambulatory. The patient ambulated 10 minutes under supervision and was without apparent concerns at time of release. Post-care instructions include advising patient to keep post-treatment bandages in place and dry for 48 hours, avoid extended periods of inactivity, avoid heavy exercise for one week, wear compression stockings on the treated leg continuously for two weeks, to walk daily for 10 minutes over the next month. The patient was instructed to take an anti-inflammatory medicine as needed and to follow up for color duplex scan of the Saphenous veins, the treated branch saphenous varicosities, the adjacent deep veins, and additional treatment within 7 days. PERSONNEL: Griffin Myers RN Electronically authenticated by: LYLE PAZ Date: 09/02/2023 16:10
== END 2023-09-02 14:57 | disposition home or self-care (01) ==
LOC: VC 14:56
PROVIDERS: PCP Radiology Diagnostic Radiology; Visit Provider Radiology Diagnostic Radiology
DX: I83.813 Varicose veins of bilateral lower extremities with pain (principal)
CPT/HCPCS: 36466

== ENCOUNTER 2023-09-09 14:54 | Outpatient (OUT) | payer OTHER, SELFPAY ==
--- NOTE | 2023-09-09 | VEIN_ITS ---
Patient: MATT CHENG Exam Date: 09/09/2023 : 1980 Gender:F Ordering : DR PAUL WEBER M.D. Admission #: [id number] Family : Order #: [id number] CLICK HERE TO VIEW EXAM RADIOLOGY REPORT PROCEDURE: VC EXT VENOUS RT LMTD COMPARISON: VC EXT VENOUS RT LMTD, 08/25/2023. INDICATIONS: Phlebitis of superficial veins of rt lower extremity I80.01 TECHNIQUE: Lower extremity liao scale and Duplex Doppler evaluation of the deep venous system from the inguinal ligament through the calf veins. FINDINGS: REGION: Right lower extremity. THROMBI: Negative for DVT. Varithena induced thrombus visualized at medial knee. COMPRESSIBILITY: Non-compressible segments corresponding to thrombus FLOW: Areas of no flow. OTHER: No varicose veins remain. CONCLUSION: Post ablation occlusion of treated right leg incompetent varicose veins. No residual patent varicose veins are observed Dictated by: Paul Weber MD on 09/09/2023 at 15:21 Approved by: Paul Weber MD on 09/09/2023 at 15:22
--- NOTE | 2023-09-09 | VEIN_ITS ---
Patient: MATT CHENG Exam Date: 09/09/2023 : 1980 Gender:F Ordering : DR PAUL WEBER M.D. Admission #: [id number] Family : Order #: [id number] CLICK HERE TO VIEW EXAM RADIOLOGY REPORT PROCEDURE: FACILITY EST [facility] - OFFICE VISIT FOLLOW UP COMPARISON: FACILITY EST LMTD, 08/25/2023. FACILITY EST LMTD, 07/05/2023. PROGRESS NOTES: The patient reports no problems following micro foam chemical ablation of right leg incompetent varicose veins. The patient did wear her compression stocking. The patient did not require oral analgesics. Physical exam demonstrates multiple thrombosed varicose veins. No residual patent varicose veins are observed. No erythema or warmth to suggest cellulitis or thrombophlebitis. No active ulceration . Multiple bilateral residual reticular and spider veins Review of the ultrasound performed the same day demonstrates occlusive thrombus extending throughout the treated right leg incompetent varicose veins. No deep vein thrombus. The patient expressed a desire to proceed with treatment of reticular and spider veins with injection sclerotherapy. VEIN/ Facility EST LMTD IMPRESSION: 1. Successful ablation of treated right leg incompetent varicose veins 2. Persistent bilateral reticular and spider veins. PLAN: Injection sclerotherapy reticular and spider veins Nurse notes, history and physical were reviewed and confirmed, see attached forms. The nurse was present throughout the physical exam and consultation Dictated by: Paul Weber MD on 09/09/2023 at 15:28 Approved by: Paul Weber MD on 09/09/2023 at 15:29
== END 2023-09-09 14:55 | disposition home or self-care (01) ==
LOC: VC 14:54
PROVIDERS: PCP Radiology Diagnostic Radiology; Visit Provider Radiology Diagnostic Radiology
DX: Z48.812 Encounter for surgical aftercare following surgery on the circulatory system (principal); I78.1 Nevus, non-neoplastic; I80.01 Phlebitis and thrombophlebitis of superficial vessels of right lower extremity
CPT/HCPCS: 93971; G0463

== ENCOUNTER 2023-09-23 14:55 | Outpatient (OUT) | payer OTHER, SELFPAY ==
--- NOTE | 2023-09-23 14:57 | VEIN_ITS ---
[address] [address] Patient Name: MATT CHENG MRN: [id number] date: 1980 Sex: F Assigned Patient Location: Current Patient Location: [facility] Accession/Order Number: [id number] Exam Date: 09/23/2023 14:57 Report Date: 09/23/2023 15:56 At the request of: FARHAT KHAN Procedure: VC INJ Sclerosing SOLMULT Vein EXAMINATION: VC INJ Sclerosing SOLMULT Vein HISTORY: Pain due to varicose veins of bilateral legs I83.813 COMPARISON: No relevant comparison available. TECHNIQUE: The risks and benefits of the procedure were explained at length to the patient and informed written consent was obtained. Griffin Myers was present and assisted. The procedure was performed under sterile technique. The patient's leg was wrapped with Coban and postprocedural verbal and written instructions provided. SCLEROSANT: 4 cc, 0.5% polidocanol VEIN(S) INJECTED: 32 veins in the left leg VISUALIZATION: Ultrasound was not used to visualize the sclerosant ANESTHESIA: Supercooled air COMPLICATIONS: None VEIN/VC INJ Sclerosing SOLMULT Vein IMPRESSION: Technically successful sclerotherapy as described Electronically authenticated by: FARHAT KHAN Date: 09/23/2023 15:56
== END 2023-09-23 14:56 | disposition home or self-care (01) ==
LOC: VC 14:55
PROVIDERS: PCP Radiology Diagnostic Radiology; Visit Provider Radiology Diagnostic Radiology
DX: I83.813 Varicose veins of bilateral lower extremities with pain (principal)
CPT/HCPCS: 36471

== ENCOUNTER 2023-09-29 13:03 | Outpatient (OUT) | payer OTHER, SELFPAY ==
--- NOTE | 2023-09-29 13:05 | VEIN_ITS ---
[address] [address] Patient Name: MATT CHENG MRN: [id number] date: 1980 Sex: F Assigned Patient Location: Current Patient Location: Accession/Order Number: [id number] Exam Date: 09/29/2023 12:56 Report Date: 09/29/2023 14:04 At the request of: FARHAT KHAN Procedure: VC INJ Sclerosing SOLMULT Vein EXAMINATION: VC INJ Sclerosing SOLMULT Vein HISTORY: Pain due to varicose veins of bilateral legs I83.813 The risks and benefits of the procedure were explained at length to the patient and informed written consent was obtained. The procedure was performed under sterile technique. The patient's leg was wrapped with Coban and postprocedural verbal and written instructions provided. Sue Benito RN was present and assisted. SCLEROSANT: 2mL 0.5% Polidocanol. VEIN(S) INJECTED: 26 veins in the right leg. VISUALIZATION: Ultrasound was not used to visualize the sclerosant. ANESTHESIA: Supercooled air. COMPLICATIONS: None. Electronically authenticated by: MATTHEW QUAN Date: 09/29/2023 14:04
== END 2023-09-29 13:04 | disposition home or self-care (01) ==
LOC: VC 13:04
PROVIDERS: PCP Radiology Diagnostic Radiology; Visit Provider Radiology Diagnostic Radiology
DX: I83.813 Varicose veins of bilateral lower extremities with pain (principal)
CPT/HCPCS: 36471

== ENCOUNTER 2023-10-13 14:49 | Outpatient (OUT) | payer OTHER, SELFPAY ==
--- NOTE | 2023-10-13 14:56 | VEIN_ITS ---
[address] [address] Patient Name: MATT CHENG MRN: [id number] date: 1980 Sex: F Assigned Patient Location: Current Patient Location: Accession/Order Number: [id number] Exam Date: 10/13/2023 14:56 Report Date: 10/13/2023 15:56 At the request of: FARHAT KHAN Procedure: VC INJ Sclerosing SOLMULT Vein EXAMINATION: VC INJ Sclerosing SOLMULT Vein HISTORY: Pain due to varicose veins of bilateral legs I83.813 COMPARISON: No relevant comparison available. TECHNIQUE: The risks and benefits of the procedure were explained at length to the patient and informed written consent was obtained. Griffin Myers was present and assisted. The procedure was performed under sterile technique. The patient's leg was wrapped with Coban and postprocedural verbal and written instructions provided. SCLEROSANT: 4 cc, 0.5% polidocanol VEIN(S) INJECTED: 28 veins in the left leg VISUALIZATION: Ultrasound was not used to visualize the sclerosant ANESTHESIA: Supercooled air COMPLICATIONS: None VEIN/VC INJ Sclerosing SOLMULT Vein IMPRESSION: Technically successful sclerotherapy as described Electronically authenticated by: FARHAT KHAN Date: 10/13/2023 15:56
== END 2023-10-13 14:50 | disposition home or self-care (01) ==
LOC: VC 14:54
PROVIDERS: PCP Radiology Diagnostic Radiology; Visit Provider Radiology Diagnostic Radiology
DX: I83.813 Varicose veins of bilateral lower extremities with pain (principal)
CPT/HCPCS: 36471

== ENCOUNTER 2023-11-03 09:58 | Outpatient (OUT) | payer OTHER, SELFPAY ==
--- NOTE | 2023-11-03 10:00 | VEIN_ITS ---
[address] [address] Patient Name: MATT CHENG MRN: [id number] date: 1980 Sex: F Assigned Patient Location: Current Patient Location: Accession/Order Number: [id number] Exam Date: 11/03/2023 10:07 Report Date: 11/03/2023 12:06 At the request of: FARHAT KHAN Procedure: VC INJ Sclerosing SOLMULT Vein EXAMINATION: VC INJ Sclerosing SOLMULT Vein HISTORY: Pain due to varicose veins of bilateral legs I83.813 The risks and benefits of the procedure were explained at length to the patient and informed written consent was obtained. The procedure was performed under sterile technique. The patient's leg was wrapped with Coban and postprocedural verbal and written instructions provided. Griffin Myers RN was present and assisted. SCLEROSANT: 2mL 0.5% Polidocanol. VEIN(S) INJECTED: 21 veins in the right. VISUALIZATION: Ultrasound was not used to visualize the sclerosant. ANESTHESIA: Supercooled air. COMPLICATIONS: None. Electronically authenticated by: MATTHEW QUAN Date: 11/03/2023 12:06
== END 2023-11-03 09:59 | disposition home or self-care (01) ==
LOC: VC 09:59
PROVIDERS: PCP Radiology Diagnostic Radiology; Visit Provider Radiology Diagnostic Radiology
DX: I83.813 Varicose veins of bilateral lower extremities with pain (principal)
CPT/HCPCS: 36471

== ENCOUNTER 2024-04-12 19:31 | Outpatient (REF) | payer OTHER, SELFPAY ==
[2024-04-17 12:08] LABS: Age Gdln ACOG Testing Note (.); HPV Aptima Negative (Negative); IGP, Aptima HPV, rfx 16/18,45 Note (.)
== END 2024-04-12 19:32 | disposition home or self-care (01) ==
LOC: LAB 19:31
PROVIDERS: Visit Provider Obstetrics & Gynecology
DX: Z01.419 Encounter for gynecological examination (general) (routine) without abnormal findings (principal)
CPT/HCPCS: 87624; 88175

== ENCOUNTER 2025-05-23 20:07 | Outpatient (REF) | payer OTHER, SELFPAY ==
[2025-05-26 12:08] LABS: Age Gdln ACOG Testing Note (.); IGP, Aptima HPV, rfx 16/18,45 Note (.)
== END 2025-05-23 20:08 | disposition home or self-care (01) ==
LOC: LAB 20:07
PROVIDERS: Visit Provider Physician Assistant
DX: Z01.419 Encounter for gynecological examination (general) (routine) without abnormal findings (principal)
CPT/HCPCS: 87624; 88175